=== PATIENT | male | born 1935 | race Caucasian/White ===

== ENCOUNTER 2016-05-22 15:15 | Inpatient (IN) | payer OTHER ==
--- NOTE | ~2016-05-22 | HP ---
History And Physical [place] [place] [id number] [place]. [address] NAME: SIMONE MANCERA : 35 STATUS : ADM Jackie PAT#: [id number] AGE: 80 ADM/REG DATE : 05/22/16 MR#: [id number] REPORT SERV DATE: 05/23/16 DICTATED BY: PHILIPP CLEMENTS DATE: 05/23/16 REPORT STATUS : Draft TRANSCRIBED BY: MODL DATE: 05/23/16 DATE OF ADMISSION: 05/22/2016 HISTORY OF PRESENT ILLNESS: Mr. Simone Schumacher is an 80-year-old gentleman with past medical history extensive for coronary artery disease. He has had two triple bypass surgeries with subsequent stents. The most recent appears to have been in [address] Wing. The patient reports that yesterday at [facility] began experiencing substernal chest pain which radiated to the back. He reports that this is similar to some of his previous anginal episodes. He denied any diaphoresis or shortness of breath. He denies any nausea. REVIEW OF SYSTEMS: Significant for recent complaints of left lower extremity claudication and apparent limb ischemia ("it felt like ice"). He is status post a procedure. He reports over at [facility] which I suspect is Dr. Garg. He is a fairly poor historian. He states that this was 2 weeks ago that he got a stent. He reports that the left leg is much better now but he is experiencing some right leg discomfort. He denies any orthopnea, paroxysmal nocturnal dyspnea, syncope or presyncope. PAST MEDICAL HISTORY: As noted above. Significant for extensive history of coronary artery disease. The patient also has history of hypertension and hyperlipidemia. 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 MEDICATIONS: See list. ALLERGIES: THE PATIENT REPORTS ALLERGIES TO PENICILLIN, CODEINE, LEVAQUIN, AND OXYCODONE. FAMILY HISTORY: Positive for coronary artery disease. PHYSICAL EXAMINATION: VITAL SIGNS: Blood pressure 100/60, pulse 55, respiratory rate 16. GENERAL: This is a well-developed, well-nourished, 80-year-old male, alert and oriented x3 in no acute distress. NECK: No jugular venous distention, hepatojugular reflux, or carotid bruits. CARDIOVASCULAR: Normal rate with regular rhythm. 1/6 systolic murmur heard best at left upper sternal border. LUNGS: Clear to auscultation without wheezes, rales, or rhonchi. EXTREMITIES: Significant for bilateral inguinal, femoral ecchymoses with a small hematoma noted on the right side. EXTREMITIES: Show average capillary refill. There is no edema. DATA REVIEWED: EKG shows sinus bradycardia with heart rate of 49 beats per minute and nonspecific anterior and lateral T-wave abnormalities. There is no acute injury or ischemia pattern. Initial troponin is negative. History And Physical [address] [address] NAME: SIMONE MANCERA : 35 STATUS : ADM Jackie PAT#: [id number] AGE: 80 ADM/REG DATE : 05/22/16 MR#: [id number] REPORT SERV DATE: 05/23/16 DICTATED BY: PHILIPP CLEMENTS DATE: 05/23/16 REPORT STATUS : Draft TRANSCRIBED BY: DWAIN DATE: 05/23/16 ASSESSMENT: 1. Acute coronary syndrome. 2. Coronary artery disease. 3. Hypertension. 4. Hyperlipidemia. 5. Peripheral vascular disease. 6. Bradycardia. PLAN: 1. See orders. 2. We will proceed with left heart catheterization and possible PCI, most likely. We will defer this decision to Dr. Wing. /DWAIN Philipp Clements M.D., [facility] / [id number] CC: Philipp Wing M.D., F.A.C.C.
--- NOTE | ~2016-05-22 | OP ---
Record Of Operation [facility] [address] [place]. [address] NAME: SAMM MANCERA : 35 STATUS : ADM Jackie PAT#: [id number] AGE: 80 ADM/REG DATE : 05/22/16 MR#: [id number] REPORT SERV DATE: 05/24/16 DICTATED BY: PHILIPP WING DATE: 05/24/16 REPORT STATUS : Draft TRANSCRIBED BY: MODL DATE: 05/24/16 DATE OF PROCEDURE: 05/24/2016 CARDIAC CATHETERIZATION REPORT INDICATION FOR THIS PROCEDURE: Acute coronary syndrome. PROCEDURE IN DETAIL: The patient was prepped and draped in the usual sterile fashion. Adequate anesthesia was obtained over the left femoral vessels using lidocaine infiltration. Using the Seldinger technique, 6-Afghan sheath was placed in the right femoral artery. A 6 FL4 coronary catheter was advanced to the left coronary ostium. The left coronary injections were performed in multiple views. Left coronary catheter was then exchanged for 6 FR4 coronary catheter, which was used to inject the [place] right coronary artery and saphenous vein grafts. The right coronary catheter was then exchanged for a 6-Afghan internal mammary artery catheter, it was used to inject the left internal mammary artery graft. The internal mammary artery catheter was exchanged for a 6-Afghan multipurpose catheter, which was used to perform additional saphenous vein graft injections. Multipurpose catheter was exchanged for a 6-Afghan pigtail catheter, which was advanced into the left ventricular cavity. Pressures were measured across the aortic valve and left ventricular angiogram was obtained in the SIFUENTES projection. The pigtail catheter was removed over a guidewire and sheath was left in place. No apparent complications. RESULTS: 1. Pressures: The left ventricular end-diastolic pressure was 20 mmHg and no gradient was present across the aortic valve. 2. Left ventricular angiogram: The left ventricle contracted normally with an estimated ejection fraction of 70%. 3. Coronary arteriograms: The left main coronary artery is normal. The left anterior descending coronary artery is occluded in its midportion. Left circumflex coronary artery is a small nondominant vessel with luminal irregularities, but no obstructive disease. The ramus intermedius branch has luminal irregularities, but no obstructive disease. The right coronary artery is a dominant vessel with 40% in-stent lesion proximally and a 40% to 50% lesion in its midportion. 4. Grafts: All of the saphenous vein grafts are occluded proximally. The internal mammary artery graft to the mid LAD is patent without stenosis. IMPRESSION: 1. Significant two-vessel coronary artery disease. 2. Patent internal mammary artery graft to left anterior descending artery. 3. Patent stents in right coronary artery with nonobstructive disease in the proximal mid vessel. 4. Normal left ventricular contractility. PLAN: Continue medical therapy. Record Of Operation [address] [place]. [address] NAME: SAMM MANCERA : 35 STATUS : ADM Jackie PAT#: [id number] AGE: 80 ADM/REG DATE : 05/22/16 MR#: [id number] REPORT SERV DATE: 05/24/16 DICTATED BY: PHILIPP WING DATE: 05/24/16 REPORT STATUS : Draft TRANSCRIBED BY: DWAIN DATE: 05/24/16 MARIBELL/DWAIN Philipp Wing M.D., [facility] / [id number] CC: Philipp Wing M.D., FTaniaA.CTaniaCTania Galloway MD
[2016-05-22 14:23] LABS: BASOPHILS 0.5 %; BASOPHILS ABSOLUTE 0.03 10/3/uL (0.0-0.16); EOSINOPHILS 1.4 %; EOSINOPHILS ABSOLUTE 0.09 10/3/uL (0.0-0.53); HEMATOCRIT 36.7 % (40.0-51.0); HEMOGLOBIN 12.7 g/dL (13.6-17.8); IMMATURE GRANULOCYTES 0.3 %; IMMATURE GRANULOCYTES ABSOLUTE 0.02 10/3/uL (0.0-0.11); LYMPHOCYTES 17.6 %; LYMPHOCYTES ABSOLUTE 1.16 10/3/uL (0.67-4.30); MANUAL DIFF NO %; MEAN CORPUS HGB CONC 34.6 g/dL (32.0-36.0); MEAN CORPUSCULAR HEMOGLOB 30.8 pg (26.0-34.0); MEAN CORPUSCULAR VOLUME 88.9 fL (80-100); MEAN PLATELET VOLUME 8.6 fL (9.2-13.0); MONOCYTES 8.7 %; MONOCYTES ABSOLUTE 0.57 10/3/uL (0.21-1.20); NEUTROPHILS 71.5 %; NEUTROPHILS ABSOLUTE 4.71 10/3/uL (2.02-8.40); PLATELET COUNT 263 10/3/uL (150-400); RED CELL COUNT 4.13 10/6/uL (4.7-6.1); WHITE BLOOD CELLS 6.6 10/3/uL (4.5-10.5)
[2016-05-22 14:30] LABS: INTERNATIONAL NORMAL RATI 1.1 UNITS (-); PARTIAL THROMBO TIME 27.3 SEC (22.5-37.2)
[2016-05-22 14:39] LABS: CALCIUM, SERUM 8.9 MG/DL (8.5-10.4); CHEST PAIN PROFILE TAT 0 Hrs 20 Mins; CHLORIDE, SERUM 101 MMOL/L (96-112); CO2 (CARBON DIOXIDE) 27 MMOL/L (24-34); CREATININE 1.35 MG/DL (0.70-1.30); GFR AFRICAN AMERICAN 57 ML/MIN (>=60); GFR NON AFRICAN AMERICAN 49 ML/MIN (>=60); GLUCOSE, SERUM 96 MG/DL (60-99); SODIUM, SERUM 141 MMOL/L (135-148); TROPONIN I <0.02 NG/ML (<0.05)
[2016-05-22 14:41] LABS: BUN (BLOOD UREA NITROGEN) 36 MG/DL (6-23); POTASSIUM, SERUM 3.7 MMOL/L (3.5-5.3)
[~2016-05-22 15:15] MED LIST: ALEVE220 MG PO; ASAB PO; ASAEC PO; ATEN25 PO; ATEN50 PO; ATENOLOL PO; ATIVAN2 MG PO; CYTO5 PO; ENALAPRIL PO; HALF81 PO; HYT2 PO; LEVOTHYROXIN125 MCG PO; LEVSINTAB PO; MONODOX100 MG PO; MULTIPLE VIT PO; NEUR100 PO; NITROSTAT0.4 MG SL; NORV10 PO; PLAVIX PO; PRILOSEC40 MG PO; SIMVASTATIN PO; SYN125 PO; T3 PO; ULTRAM50 PO; VASOTEC5 PO; VITAMIN B PO; VITC500 PO; ZANTAC300 MG PO; ZOCOR40 PO; [UNRECOGNIZED DRUG - OTHER] PO; [UNRECOGNIZED DRUG - OTHER] PO
[2016-05-22] MEDS ORDERED: NORV10 PO (15:41)
[2016-05-22] MEDS ORDERED: VASERETIC5 PO (15:42)
[2016-05-22] MEDS ORDERED: ZOCOR40 PO (15:42)
[2016-05-22] MEDS ORDERED: LEVOTHYROXIN125 MCG PO (15:42)
[2016-05-22] MEDS ORDERED: ATEN50 PO (15:42)
[2016-05-22] MEDS ORDERED: PRILOSEC40 MG PO (15:42)
[2016-05-22] MEDS ORDERED: PLAVIX PO (15:42)
[2016-05-22] MEDS ORDERED: ASAB PO (15:43)
[2016-05-22] MEDS ORDERED: NEUR100 PO (15:43)
[2016-05-22] MEDS ORDERED: VITE PO (15:43)
[2016-05-22] MEDS ORDERED: ALEVE220 MG PO (15:43)
[2016-05-22] MEDS ORDERED: VITAMIN C PO (15:43)
[2016-05-22] MEDS ORDERED: ARICEPT5 PO (15:43)
[2016-05-22] MEDS ORDERED: NIACINAMIDE100 MG PO (15:44)
[2016-05-22] MEDS ORDERED: VITAMIN D2000 UNIT PO (15:44)
[2016-05-22] MEDS ORDERED: CENTRUM PO (15:44)
[2016-05-22] MEDS ORDERED: L20 PO (15:49)
[2016-05-22 16:01] LABS: ALBUMIN 3.7 G/DL (3.5-5.0); SGOT(AST) 16 U/L (5-40); TOTAL PROTEIN 6.8 G/DL (6.0-8.5)
[2016-05-22 16:02] LABS: DIRECT BILIRUBIN 0.2 MG/DL (0.0-0.4); INDIRECT BILIRUBIN(NOT ORDER) 0.8 MG/DL (0.1-0.9)
[2016-05-22 16:12] LABS: ALKALINE PHOSPHATASE 109 U/L (45-117); SGPT(ALT) 22 U/L (5-65)
[2016-05-23 03:27] LABS: BASOPHILS 0.5 %; BASOPHILS ABSOLUTE 0.03 10/3/uL (0.0-0.16); EOSINOPHILS 3.3 %; HEMATOCRIT 34.4 % (40.0-51.0); HEMOGLOBIN 11.8 g/dL (13.6-17.8); IMMATURE GRANULOCYTES 0.3 %; IMMATURE GRANULOCYTES ABSOLUTE 0.02 10/3/uL (0.0-0.11); LYMPHOCYTES 27.1 %; LYMPHOCYTES ABSOLUTE 1.63 10/3/uL (0.67-4.30); MEAN CORPUS HGB CONC 34.3 g/dL (32.0-36.0); MEAN CORPUSCULAR HEMOGLOB 30.3 pg (26.0-34.0); MEAN CORPUSCULAR VOLUME 88.2 fL (80-100); MONOCYTES 12.3 %; MONOCYTES ABSOLUTE 0.74 10/3/uL (0.21-1.20); NEUTROPHILS 56.5 %; NEUTROPHILS ABSOLUTE 3.39 10/3/uL (2.02-8.40); PLATELET COUNT 257 10/3/uL (150-400); RBC DISTRIBUTION WIDTH 13.3 % (12.0-16.0)
[2016-05-23 03:28] LABS: MANUAL DIFF NO %
[2016-05-23 03:43] LABS: CALCIUM, SERUM 8.5 MG/DL (8.5-10.4); CHLORIDE, SERUM 107 MMOL/L (96-112); CO2 (CARBON DIOXIDE) 25 MMOL/L (24-34); GFR AFRICAN AMERICAN 66 ML/MIN (>=60); GFR NON AFRICAN AMERICAN 57 ML/MIN (>=60); GLUCOSE, SERUM 87 MG/DL (60-99); SODIUM, SERUM 145 MMOL/L (135-148); TROPONIN I <0.02 NG/ML (<0.05)
[2016-05-23 03:44] LABS: BUN (BLOOD UREA NITROGEN) 32 MG/DL (6-23)
[2016-05-23 07:58] LABS: CHOLESTEROL 117 MG/DL (< 200); LDL CHOLESTEROL 59 MG/DL (< 130); NON-HDL CHOLESTEROL 78 MG/DL (< 160); SGPT(ALT) 19 U/L (5-65); TRIGLYCERIDE 98 MG/DL (< 150)
[2016-05-23 08:00] LABS: HDL CHOLESTEROL 39 MG/DL (> 39)
[2016-05-24 05:18] LABS: BASOPHILS 0.5 %; BASOPHILS ABSOLUTE 0.03 10/3/uL (0.0-0.16); EOSINOPHILS ABSOLUTE 0.26 10/3/uL (0.0-0.53); HEMATOCRIT 36.1 % (40.0-51.0); HEMOGLOBIN 12.4 g/dL (13.6-17.8); IMMATURE GRANULOCYTES 0.2 %; IMMATURE GRANULOCYTES ABSOLUTE 0.01 10/3/uL (0.0-0.11); LYMPHOCYTES 23.4 %; LYMPHOCYTES ABSOLUTE 1.53 10/3/uL (0.67-4.30); MEAN CORPUS HGB CONC 34.3 g/dL (32.0-36.0); MEAN CORPUSCULAR HEMOGLOB 30.3 pg (26.0-34.0); MEAN CORPUSCULAR VOLUME 88.3 fL (80-100); MEAN PLATELET VOLUME 8.9 fL (9.2-13.0); MONOCYTES 11.6 %; MONOCYTES ABSOLUTE 0.76 10/3/uL (0.21-1.20); NEUTROPHILS 60.3 %; NEUTROPHILS ABSOLUTE 3.96 10/3/uL (2.02-8.40); PLATELET COUNT 268 10/3/uL (150-400); RBC DISTRIBUTION WIDTH 13.1 % (12.0-16.0); RED CELL COUNT 4.09 10/6/uL (4.7-6.1); WHITE BLOOD CELLS 6.6 10/3/uL (4.5-10.5)
[2016-05-24 05:19] LABS: MANUAL DIFF NO %
[2016-05-24 05:24] LABS: INTERNATIONAL NORMAL RATI 1.1 UNITS (-); PROTIME (NOT ORD) 13.9 SEC (12.0-14.5)
[2016-05-24 05:33] LABS: BUN (BLOOD UREA NITROGEN) 20 MG/DL (6-23); CALCIUM, SERUM 8.3 MG/DL (8.5-10.4); CHLORIDE, SERUM 111 MMOL/L (96-112); CHOL/HDL RATIO(NOT ORDER) 2.9 (0-5); CHOLESTEROL 117 MG/DL (< 200); CO2 (CARBON DIOXIDE) 24 MMOL/L (24-34); CREATININE 0.91 MG/DL (0.70-1.30); GFR AFRICAN AMERICAN 92 ML/MIN (>=60); GFR NON AFRICAN AMERICAN 79 ML/MIN (>=60); GLUCOSE, SERUM 90 MG/DL (60-99); HDL CHOLESTEROL 41 MG/DL (> 39); LDL CHOLESTEROL 58 MG/DL (< 130); NON-HDL CHOLESTEROL 76 MG/DL (< 160); POTASSIUM, SERUM 3.8 MMOL/L (3.5-5.3); SODIUM, SERUM 145 MMOL/L (135-148); TRIGLYCERIDE 92 MG/DL (< 150)
== END 2016-05-24 23:57 | disposition home or self-care (01) | DRG 287 ==
LOC: ER 15:15 → CDU1 15:35 → CDU2 16:25
PROVIDERS: Hospitalist; Internal Medicine Interventional Cardiology
PROC: 4A023N7 Measurement of Cardiac Sampling and Pressure, Left Heart, Percutaneous Approach (ICD-10-PCS; principal; 2016-05-24)
PROC: B2131ZZ Fluoroscopy of Multiple Coronary Artery Bypass Grafts using Low Osmolar Contrast (ICD-10-PCS; 2016-05-24)
PROC: B2181ZZ Fluoroscopy of Left Internal Mammary Bypass Graft using Low Osmolar Contrast (ICD-10-PCS; 2016-05-24)
PROC: B2111ZZ Fluoroscopy of Multiple Coronary Arteries using Low Osmolar Contrast (ICD-10-PCS; 2016-05-24)
PROC: B2151ZZ Fluoroscopy of Left Heart using Low Osmolar Contrast (ICD-10-PCS; 2016-05-24)
DX: I25.110 Atherosclerotic heart disease of native coronary artery with unstable angina pectoris (principal); I73.9 Peripheral vascular disease, unspecified; Z95.1 Presence of aortocoronary bypass graft; I10 Essential (primary) hypertension; I25.710 Atherosclerosis of autologous vein coronary artery bypass graft(s) with unstable angina pectoris; E78.5 Hyperlipidemia, unspecified; Z86.73 Personal history of transient ischemic attack (TIA), and cerebral infarction without residual deficits; Z88.0 Allergy status to penicillin; Z88.5 Allergy status to narcotic agent; Z95.828 Presence of other vascular implants and grafts
CPT/HCPCS: 71010; 80048; 80061; 80076; 83690; 83735; 84460; 84484; 85025; 85610; 85730; 93005; 93459; 99285; A9270-GY; C1769; C1894; J2250; J3010; Q9967